=== PATIENT | male | born 1995 | race Two or more races ===

== ENCOUNTER 2020-05-04 15:39 | Emergency (ER) | payer MEDICAID ==
[~2020-05-04] VITALS: Ht 180.3 cm; Wt 86.4 kg
[2020-05-04] MEDS ORDERED: PROPARACAINE HCL 0.5% 15 ML OPHTHALMIC SOLUTION OD ONE (16:15)
[2020-05-04] MEDS ORDERED: HYDROCODONE/ACETAMINOPHEN 5-325 MG TABLET PO ONE (16:15)
[2020-05-04] MEDS ORDERED: FLUORESCEIN SODIUM 1 MG STRIP ONE (17:18)
[2020-05-04] MEDS ORDERED: MOXIFLOXACIN HCL 0.5% 3 ML OPHTHALMIC SOLUTION OD ONE (18:15)
[2020-05-04] MEDS ORDERED: OFLOXACIN 0.3% 5 ML OPHTHALMIC SOLUTION OD ONE (18:15)
[2020-05-04 18:20] VITALS: BP 129/78
== END 2020-05-04 19:11 | disposition home or self-care (01) ==
LOC: EMS 15:44
DX: T15.01XA Foreign body in cornea, right eye, initial encounter (principal); H16.001 Unspecified corneal ulcer, right eye; W22.8XXA Striking against or struck by other objects, initial encounter; Y93.89 Activity, other specified; Y92.89 Other specified places as the place of occurrence of the external cause; Y99.8 Other external cause status
CPT/HCPCS: 65222; 99284; Z7502; Z7610